=== PATIENT | female | born 1955 | race Caucasian/White ===

== ENCOUNTER → 2024-02-02 09:32 | Outpatient (BNVA) | payer MEDICARE, SELFPAY | PROVIDERS: PCP Clinical Nurse Specialist Adult Health; Visit Provider Clinical Nurse Specialist Adult Health | DX: N39.0 Urinary tract infection, site not specified (principal); M25.511 Pain in right shoulder; G89.29 Other chronic pain; K21.9 Gastro-esophageal reflux disease without esophagitis; E16.2 Hypoglycemia, unspecified; R63.0 Anorexia | CPT/HCPCS: 80053; 81000; 82607; 82728; 83036; 83540; 83550; 84439; 84443; 85025; 85651; 86140; 87086 ==

== ENCOUNTER 2024-02-08 06:24 | Outpatient (CLI) | payer MEDICARE, SELFPAY ==
--- NOTE | 2024-02-08 07:00 | CT_ITS ---
WS: [id number] LDCT LUNG CANCER SCREENING HISTORY: Z72.0 - Tobacco use TECHNIQUE: Axial imaging performed from the apices to 1 cm below the costophrenic angles. Coronal and sagittal reformats are submitted with axial MIP series. All CT scans at [facility] use at least one of these dose optimization techniques: automated exposure control; mA and/or kV adjustment per patient size (includes targeted exams where dose is matched to clinical indication); or iterativ e reconstruction. DLP: 51.20 mGy.cm DIvol: Mean CTDIvol: 0.80 (mGy) COMPARISON: None available. Diagnostic quality: Satisfactory Lungs: Marked pulmonary hyperexpansion with emphysema. Mild hazy attenuation throughout both lungs as sociated with centrilobular emphysema. Biapical irregular pulmonary opacifications. LEFT apical irreg ular nodule 14 mm. Irregular shaped RIGHT apical nodule 14 mm with associated pleural tagging. No mas s. No endobronchial lesions. Heart: Normal size heart with no pericardial effusion.. Other findings: Mild atherosclerosis aorta. Thoracic aorta is mildly ectatic. There is no adenopathy identified. Small lymph nodes could be obscured without IV contrast. Normal size pulmonary artery. He avily calcified breast implants. Small hiatal hernia. CT/CT lung screening [id number] IMPRESSION: LUNG-RADS: 4A-Probably Suspicious FOLLOW UP: 3 Month LDCT OTHER FINDINGS (S MODIFIER): None.
== END 2024-02-08 06:25 | disposition home or self-care (01) ==
PROVIDERS: PCP Clinical Nurse Specialist Adult Health; Visit Provider Clinical Nurse Specialist Adult Health
DX: Z12.2 Encounter for screening for malignant neoplasm of respiratory organs (principal); Z87.891 Personal history of nicotine dependence; R63.4 Abnormal weight loss; E16.2 Hypoglycemia, unspecified; R63.0 Anorexia; J43.9 Emphysema, unspecified; R91.8 Other nonspecific abnormal finding of lung field; K44.9 Diaphragmatic hernia without obstruction or gangrene; R92.1 Mammographic calcification found on diagnostic imaging of breast
CPT/HCPCS: 71271